=== PATIENT | female | born 1975 | race Caucasian/White ===

== ENCOUNTER 2017-07-01 18:49 | Emergency (ER) | payer OTHER ==
[~2017-07-01] VITALS: Ht 157.5 cm; Wt 49.9 kg
[~2017-07-01 18:49] MED LIST: ASPIR 8181 MG; ASPIRIN EC325 MG; BACTRIM 400-801 EACH PO; ENALAPRIL MALEA10 MG; HYDROXYCHLOROQ200 MG; PLAQUENIL; URIN D.S. TABL1 EACH PO
[2017-07-01] MEDS ORDERED: PLAQUENIL (19:29)
== END 2017-07-01 21:12 | disposition home or self-care (01) ==
LOC: ER 18:49
DX: R10.31 Right lower quadrant pain (principal); K59.09 Other constipation

== ENCOUNTER 2022-04-01 13:51 | Emergency (ER) | payer OTHER ==
[~2022-04-01] VITALS: Ht 157.5 cm; Wt 40.8 kg
== END 2022-04-01 15:19 | disposition home or self-care (01) ==
LOC: ER 13:51
DX: M79.604 Pain in right leg (principal)

== ENCOUNTER 2022-04-04 09:39 | Emergency (ER) | payer OTHER ==
[~2022-04-04] VITALS: Ht 154.9 cm; Wt 40.8 kg
== END 2022-04-04 11:10 | disposition home or self-care (01) ==
LOC: ER 09:39
DX: M79.604 Pain in right leg (principal); M79.605 Pain in left leg

== ENCOUNTER 2022-05-03 10:57 | Emergency (ER) | payer OTHER ==
[~2022-05-03] VITALS: Ht 154.9 cm; Wt 40.8 kg
[2022-05-03] MEDS ORDERED: NAPROXEN500 MG PO (13:49)
== END 2022-05-03 17:02 | disposition home or self-care (01) ==
LOC: ER 10:57
DX: M79.672 Pain in left foot (principal)

== ENCOUNTER 2024-01-19 10:13 | Emergency (ER) | payer OTHER ==
[~2024-01-19] VITALS: Ht 154.9 cm; Wt 44.5 kg
[~2024-01-19 10:13] MED LIST changes: +NAPROXEN500 MG PO
[2024-01-19] MEDS ORDERED: LYRICA50 MG PO (10:18)
[2024-01-19] MEDS ORDERED: 0.9 % SODIUM CHLORIDE 1,000 ML IV ONE (11:00)
[2024-01-19] MEDS ORDERED: FAMOtidine 10 MG/ML (4ML VIAL) IV ONE (11:00)
[2024-01-19 11:16] LABS: HEMATOCRIT 35.8 % (36.0-45.00); HEMOGLOBIN 12.1 g/dL (12.0-15.00); MEAN CELL VOLUME 83.9 fL (80.00-100.00); MEAN CORPUSCULAR HEMOGLOBIN 28.3 pg (27.00-32.0); MEAN CORPUSCULAR HGB CONC 33.7 g/dl (32.0-36.0); PLATELET COUNT 189 K/uL (150-450); RED BLOOD COUNT 4.26 M/uL (4.00-6.00); RED CELL DISTRIBUTION WIDTH 13.9 % (11.5-14.5)
[2024-01-19 11:30] LABS: PH,URINE 7.5 (5.0-8.0); URINE APPEARANCE Clear; URINE BILIRRUBIN Negative (NEGATIVE); URINE BLOOD Negative; URINE COLOR Yellow; URINE GLUCOSE Negative (NEGATIVE); URINE KETONE Negative (NEGATIVE); URINE LEUKOCYTE Negative; URINE NITRATE Negative; URINE PROTEIN Negative (NEGATIVE); URINE UROBILINOGEN 0.2 E.U./dl
[2024-01-19 11:33] LABS: URINE BACTERIA 21.3 uL (0.0-1933)
[2024-01-19 11:39] LABS: URINE EPITHELIAL CELLS 1.2 uL (0.0-38.8); URINE RBC 0.6 uL (0.0-20.8)
[2024-01-19 11:40] LABS: INR 1.06; PROTHROMBIN TIME 11.5 SECONDS (9.0-11.5)
[2024-01-19 11:43] LABS: D DIMER 2.55 MG/L; PARTIAL THROMBOPLASTIN TIME 37.3 SECONDS (22.0-34.0)
[2024-01-19 11:44] LABS: ALBUMIN 3.3 gm/dL (3.4-5.0); BILIRUBIN TOTAL 0.42 mg/dL (0.3-1.2); CALCIUM 8.9 mg/dL (8.5-10.1); CREATININE SERUM 0.45 mg/dL (0.55-1.02); GFR 147.48; GLOBULINA 4.8 G/DL (2.4-3.5); POTASSIUM 3.6 mEq/L (3.5-5.1); TOTAL PROTEIN 8.1 gm/dL (6.4-8.2)
[2024-01-19 12:36] LABS: ABG PH 7.419 (7.35-7.45); ABG PO2 101.6 mmHg (80-100); ABG pCO2 40.5 mmHg (35-45); BASE EXCESS 1.1 mmol/l; SaO2 97.9 %
[2024-01-19 12:37] LABS: BICARBONATE 25.7 mmol/l (23-25); Tco2 26.9 mmol/l
[2024-01-19 12:38] LABS: allen test SATISFACTORY; o2 21 %; puncture site RADIAL RIGHT
== END 2024-01-19 16:49 | disposition home or self-care (01) ==
LOC: ER 10:15
PROVIDERS: General Practice
DX: R06.02 Shortness of breath (principal); D68.62 Lupus anticoagulant syndrome

== ENCOUNTER 2024-05-24 12:21 | Emergency (ER) | payer OTHER ==
[~2024-05-24] VITALS: Ht 154.9 cm; Wt 44.5 kg
[~2024-05-24 12:21] MED LIST changes: +LYRICA50 MG PO
[2024-05-24 16:49] LABS: HEMATOCRIT 23.8 % (36.0-45.00); HEMOGLOBIN 8.4 g/dL (12.0-15.00); MEAN CELL VOLUME 83.6 fL (80.00-100.00); MEAN CORPUSCULAR HEMOGLOBIN 29.4 pg (27.00-32.0); MEAN CORPUSCULAR HGB CONC 35.4 g/dl (32.0-36.0); PLATELET COUNT 247 K/uL (150-450); RED BLOOD COUNT 2.85 M/uL (4.00-6.00); RED CELL DISTRIBUTION WIDTH 16.1 % (11.5-14.5)
[2024-05-24 16:52] LABS: INR 1.08; PARTIAL THROMBOPLASTIN TIME 35.2 SECONDS (22.0-34.0); PROTHROMBIN TIME 11.7 SECONDS (9.0-11.5)
[2024-05-24 16:57] LABS: ALBUMIN 3.4 gm/dL (3.4-5.0); BILIRUBIN TOTAL 0.83 mg/dL (0.3-1.2); CALCIUM 8.6 mg/dL (8.5-10.1); CREATININE SERUM 0.52 mg/dL (0.55-1.02); GFR 124.82; POTASSIUM 4.04 mEq/L (3.5-5.1); TOTAL PROTEIN 8.4 gm/dL (6.4-8.2)
[2024-05-24 17:18] LABS: URINE APPEARANCE Cloudy; URINE BILIRRUBIN Negative (NEGATIVE); URINE BLOOD Negative; URINE COLOR Yellow; URINE GLUCOSE Negative (NEGATIVE); URINE KETONE Negative (NEGATIVE); URINE LEUKOCYTE Trace; URINE NITRATE Negative; URINE PROTEIN Negative (NEGATIVE); URINE UROBILINOGEN 0.2 E.U./dl
[2024-05-24 17:23] LABS: URINE BACTERIA 39.1 uL (0.0-1933); URINE EPITHELIAL CELLS 3.1 uL (0.0-38.8)
[2024-05-24 17:28] LABS: URINE CAST 0.44 uL (0.0-1.40); URINE RBC 1.1 uL (0.0-20.8)
[2024-05-24] MEDS ORDERED: INTEGRA PLUS C1 EACH PO (21:31)
== END 2024-05-24 22:21 | disposition home or self-care (01) ==
LOC: ER 12:23
PROVIDERS: General Practice
DX: R42 Dizziness and giddiness (principal); D64.9 Anemia, unspecified; H53.8 Other visual disturbances; Z20.822 Contact with and (suspected) exposure to COVID-19; Z85.89 Personal history of malignant neoplasm of other organs and systems